=== PATIENT | female | born 1965 | race Caucasian/White ===

== ENCOUNTER 2018-02-26 18:27 | Emergency (ER) | payer OTHER ==
[~2018-02-26] VITALS: Ht 167.6 cm; Wt 108.9 kg
[2018-02-26 18:40] VITALS: BP 149/98
[2018-02-26] MEDS: IBUPROFEN 600 MG TAB PO ONE (18:47)
[2018-02-26 19:50] VITALS: BP 150/90
== END 2018-02-26 19:50 | disposition home or self-care (01) ==
LOC: MED 18:27
DX: S52.591A Other fractures of lower end of right radius, initial encounter for closed fracture (principal); I10 Essential (primary) hypertension; E11.9 Type 2 diabetes mellitus without complications; W19.XXXA Unspecified fall, initial encounter; Y93.89 Activity, other specified; Y92.89 Other specified places as the place of occurrence of the external cause; Y99.8 Other external cause status
CPT/HCPCS: 73110; 99283

== ENCOUNTER 2022-09-18 06:24 | Inpatient (IN) | payer OTHER ==
[~2022-09-18] VITALS: Ht 162.6 cm; Wt 85.7 kg
[2022-09-18 06:48] VITALS: BP 138/79
--- NOTE | 2022-09-18 06:59 | NUR ---
PT WOKE UP WITH LEFT FOOT PAIN 09/17 WHEN WALKING WITH SOME PRESSURE YESTERDAY TODAY NOTICE THE 3RD TOES TURNED THE COLOR TO BLUE AND SWELLING AN ENTIRE LEFT FOOT WITH PAIN. DENIES FEVER, N/V [facility] DM
--- NOTE | 2022-09-18 07:03 | NUR ---
BIB WHEELCHAIR TO BED 04
--- NOTE | 2022-09-18 07:19 | NUR ---
PT REPORT GIVEN TO LM. ALL CARE ENDORSED, QUESTIONS AND CONCERNS ADDRESSED.
--- NOTE | 2022-09-18 07:20 | NUR ---
REPORT RECIEVED FROM LOTTIE RUIZ FOR TRANSFER OF CARE.
[2022-09-18] MEDS ORDERED: NACL 0.9% 1,000 ML IV ONE ×2 (07:25→08:20)
[2022-09-18] MEDS ORDERED: PIPERACILLIN/TAZOBACTAM 3.375 GM in DEXTROSE 5% 50 ML IV ONE (07:25)
[2022-09-18] MEDS ORDERED: VANCOMYCIN 1,000 MG in DEXTROSE 5% 250 ML IV ONE (07:25)
--- NOTE | 2022-09-18 07:41 | NUR ---
X-Ray at bedside.
[2022-09-18] MEDS ORDERED: PIPERACILLIN/TAZOBACTAM 3.375 GM VIAL IV ONE (08:09)
[2022-09-18 08:11] LABS: BASOPHILS # (AUTO) 0.1 K/uL (0.00-0.22); BASOPHILS % (AUTO) 0.6 % (0.0-2.0); EOSINOPHILS # (AUTO) 0.1 K/uL (0-0.4); EOSINOPHILS % (AUTO) 0.5 % (0.0-4.0); HEMATOCRIT 39.5 % (36-48); HEMOGLOBIN 13.2 g/dL (12.0-16.0); LYMPHOCYTES # (AUTO) 1.2 K/uL (2.5-16.5); MEAN CORPUSCULAR HEMOGLOBIN 27 pg (27-31); MEAN CORPUSCULAR HGB CONC 33 g/dL (33-37); MEAN CORPUSCULAR VOLUME 80.4 fL (80-94); MONOCYTES # (AUTO) 0.8 K/uL (0.8-1.0); MONOCYTES % (AUTO) 4.8 % (1.7-9.3); NEUTROPHILS # (AUTO) 15.3 K/uL (1.8-7.7); NEUTROPHILS % (AUTO) 87.1 % (42.2-75.2); PLATELET COUNT (AUTO) 137 K/uL (140-450); RED BLOOD CELL COUNT(AUTO) 4.91 MIL/uL (4.20-5.40); RED CELL DISTRIBUTION WIDTH 13.1 % (11.6-13.7); WHITE BLOOD COUNT (AUTO) 17.6 K/uL (4.8-10.8)
[2022-09-18] MEDS ORDERED: CLINDAMYCIN 900MG/D5W PM 50 ML IV ONE (08:15)
--- NOTE | 2022-09-18 08:29 | NUR ---
pt resting in bed. no distress antibiotic medication zosyn started. pt stated no allergies to medications.
--- NOTE | 2022-09-18 08:33 | NUR ---
Per patient, takes no prescribed medication. Med rec complete.
[2022-09-18 08:50] LABS: ALBUMIN 3.3 g/dL (3.4-5.0); ANION GAP 11.8 (8-16); CARBON DIOXIDE 27.9 mmol/L (21-32); CREATININE 0.9 mg/dL (0.6-1.3); POTASSIUM 4.7 mmol/L (3.5-5.1); TOTAL BILIRUBIN 0.9 mg/dL (0.0-1.0)
[2022-09-18 08:51] LABS: PROTHROMBIN TIME 11.4 secs (10.8-13.4)
--- NOTE | 2022-09-18 09:00 | NUR ---
The patient's care was reviewed and supervised by [facility], RN.
--- NOTE | 2022-09-18 09:01 | NUR ---
CRITICAL LAB RESULT =[id number] MADE AWARE
--- NOTE | 2022-09-18 09:10 | NUR ---
Updated Vivian, case resolution specialist of [facility] of patients condition.
[2022-09-18] MEDS ORDERED: INSULIN REGULAR, HUMAN 100 UNIT/ML VIAL SUBQ ONE (10:30)
[2022-09-18] MEDS ORDERED: VANCOMYCIN 1,000 MG VIAL ONE (10:48)
[2022-09-18] MEDS ORDERED: POTASSIUM CHLORIDE 10 MEQ TABER PO PRN (11:15)
[2022-09-18] MEDS ORDERED: HYDROcodone/APAP 5/325 MG 1 TAB TAB PO PRN (11:15)
[2022-09-18] MEDS: NACL 0.9% 1,000 ML IV SCH ×2 (11:15→23:45)
[2022-09-18] MEDS ORDERED: KCL 20 MEQ IN 100 mL PREMIX 200 ML IV PRN (11:15)
[2022-09-18] MEDS ORDERED: MORPHINE SULFATE 4 MG/ML SYR IVP PRN (11:15)
[2022-09-18] MEDS ORDERED: MAG SULF 2000 MG/WATER PREMIX 50 ML IV PRN (11:15)
[2022-09-18] MEDS ORDERED: MAGNESIUM OXIDE 400 MG TAB PO PRN (11:15)
[2022-09-18] MEDS ORDERED: ONDANSETRON 4 MG/2 ML VIAL IVP PRN (11:15)
[2022-09-18] MEDS ORDERED: VANCOMYCIN PER PHARMACY MC PRN (11:15)
[2022-09-18] MEDS ORDERED: DEXTROSE 50% 50 ML SYR IVP PRN (11:20)
[2022-09-18] MEDS: BLOOD GLUCOSE MONITORING 1 DEV DEV FS SCH ×3 (11:30→21:40)
[2022-09-18] MEDS: PIPERACILLIN/TAZOBACTAM 3.375 GM in DEXTROSE 5% 50 ML IV SCH ×2 (12:00→18:20)
[2022-09-18] MEDS: INSULIN LISPRO SLIDING SCALE 100 UNITS/ML VIAL SUBQ PRN ×3 (12:39→21:42)
--- NOTE | 2022-09-18 12:48 | NUR ---
Patient will be admitted to care of Dr. Mclean. Admited to M/S. Will go to room 112-A. Belongings list completed. Report to LOTTIE Burdick.
[2022-09-18 13:00] VITALS: BP 133/75
[2022-09-18] MEDS: ACETAMINOPHEN 325 MG TAB PO PRN (16:58)
--- NOTE | 2022-09-18 19:30 | NUR ---
RECEIVED REPORT FROM NOREEN MCKEON FOR CONTINUITY OF CARE. PATIENT AWAKE ALERT RESTING COMFORTABLY IN BED. NO COMPLAINTS OF PAIN. SAFETY MEASURES IN PLACE. IVF INFUSING ORDERED. CALL LIGHT WITHIN REACH.
[2022-09-18 20:00] VITALS: BP 121/65
--- NOTE | 2022-09-18 20:22 | NUR ---
PATIENT WAS SEEN AND EXAMINED BY DR. VILLAR WITH NEW ORDERS NOTED.
--- NOTE | 2022-09-18 21:44 | NUR ---
ADMINISTERED SCHEDULED DUE MEDICATIONS.
[2022-09-18] MEDS: VANCOMYCIN 750 MG in NACL 0.9% 250 ML IV SCH (22:53)
[2022-09-19] MEDS: PIPERACILLIN/TAZOBACTAM 3.375 GM in DEXTROSE 5% 50 ML IV SCH ×4 (00:41→17:04)
[2022-09-19] MEDS: ACETAMINOPHEN 325 MG TAB PO PRN ×2 (01:07→17:11)
[2022-09-19 04:00] VITALS: BP 121/84
[2022-09-19 06:11] LABS: BASOPHILS % (AUTO) 0.2 % (0.0-2.0); EOSINOPHILS # (AUTO) 0.1 K/uL (0-0.4); HEMOGLOBIN 11.6 g/dL (12.0-16.0); MEAN CORPUSCULAR HEMOGLOBIN 27 pg (27-31); MEAN CORPUSCULAR HGB CONC 33 g/dL (33-37); MEAN CORPUSCULAR VOLUME 80.6 fL (80-94); MONOCYTES # (AUTO) 0.7 K/uL (0.8-1.0); MONOCYTES % (AUTO) 5.5 % (1.7-9.3); NEUTROPHILS # (AUTO) 9.9 K/uL (1.8-7.7); NEUTROPHILS % (AUTO) 77.3 % (42.2-75.2); PLATELET COUNT (AUTO) 121 K/uL (140-450); RED BLOOD CELL COUNT(AUTO) 4.34 MIL/uL (4.20-5.40); WHITE BLOOD COUNT (AUTO) 12.8 K/uL (4.8-10.8)
[2022-09-19 06:24] LABS: MAGNESIUM 1.7 mg/dL (1.8-2.4); PHOSPHORUS 2.7 mg/dL (2.5-4.9)
[2022-09-19 06:31] LABS: CARBON DIOXIDE 26.7 mmol/L (21-32); CREATININE 0.8 mg/dL (0.6-1.3); POTASSIUM 3.7 mmol/L (3.5-5.1)
[2022-09-19] MEDS: BLOOD GLUCOSE MONITORING 1 DEV DEV FS SCH ×4 (06:37→21:15)
[2022-09-19] MEDS: INSULIN LISPRO SLIDING SCALE 100 UNITS/ML VIAL SUBQ PRN ×4 (06:38→21:19)
--- NOTE | 2022-09-19 07:55 | NUR ---
RECEIVED REPORT FROM MECHANIC NURSE FOR CONTINUITY OF CARE. PT IS AWAKE , NO SIGN OF DISTRESS. WILL CONTINUE WITH POC.
--- NOTE | 2022-09-19 07:55 | NUR ---
GAVE BEDSIDE REPORT TO AM NURSE FOR CONTINUITY OF CARE. PATIENT STABLE.
[2022-09-19 08:00] VITALS: BP 124/58
--- NOTE | 2022-09-19 08:52 | NUR ---
PATIENT HAS BEEN SCREENED AND CATEGORIZED HIGH NUTRITION RISK. PATIENT WILL BE SEEN WITHIN 1-2 DAYS OF ADMISSION. 09/19/22-09/20/22 [facility] REFERRAL RECEIVED FOR WOUNDS/UNCONTROLLED DIABETES ON 09/19/22. [address]
[2022-09-19] MEDS: DOCUSATE SODIUM 100 MG GELCAP PO SCH (09:00)
[2022-09-19] MEDS: VANCOMYCIN 750 MG in NACL 0.9% 250 ML IV SCH (11:23)
[2022-09-19] MEDS: NACL 0.9% 1,000 ML IV SCH (12:15)
--- NOTE | 2022-09-19 14:05 | NUR ---
09/19/22 RD INITIAL ASSESSMENT COMPLETED PLEASE REFER TO NUTRITION ASSESSMENT UNDER CARE ACTIVITY FOR ESTIMATED NUTRITIONAL NEEDS. [facility] 2.RD RECOMMENDS [employer] [facility] FOR WOUNDS WHICH WILL PROVIDE 120 CALORIES AND 30 GRAMS OF PROTEIN. 3. RD TO FOLLOW-UP 3-5 DAYS, MODERATE RISK [address]IN [address]
[2022-09-19 16:00] VITALS: BP 145/76
--- NOTE | 2022-09-19 16:38 | NUR ---
DC [age] YRS OLD MALE PATIENT WAS AMDITTED FROM HOME WITH A DX OF CELLULITIS. PATIENT HAS A HX OF DM. XRAY OF LEFT TOE SHOWED NO ACUTE OSSEOUS ABNORMALITY , MILD SOFT TISSUE SWELLING OF THE THIRD TOE. ADMINISTERED IVF, IV ABX VANCOMYCIN AND ZOSYN . SEEN BY PODIATRY DR VILLAR RECOMMENDED MAY NEED TO DO A TOE AMPUTATION BECAUSE OF BLACK/GANGRENE. SURGERY SCHEDULED FOR TOMORROW 09/20/22.CONSULTED WITH ID. DC PLAN TO GO HOME WITH HOME HEALTH VS SNF. CM TO FOLLOW
[2022-09-19 20:00] VITALS: BP 150/78
--- NOTE | 2022-09-19 21:21 | NUR ---
DUE MEDICATION GIVEN ORDERED. PATIENT AWAKE , NO SOB NOTED. CALL LIGHT IN REACH. NO COMPLAINTS OF PAIN. IVF NS INFUSING ORDERED.
[2022-09-19] MEDS ORDERED: VANCOMYCIN 750 MG in NACL 0.9% 250 ML IV SCH (22:30)
[2022-09-20] MEDS: NACL 0.9% 1,000 ML IV SCH ×2 (01:05→13:25)
[2022-09-20 04:00] VITALS: BP 141/73
[2022-09-20] MEDS ORDERED: ceFAZolin 1,000 MG VIAL ONE (04:47)
[2022-09-20] MEDS: ACETAMINOPHEN 325 MG TAB PO PRN (05:50)
--- NOTE | 2022-09-20 05:51 | NUR ---
PATIENT COMPLAINED OF HEADACHE, MEDICATED WITH TYLENOL.
[2022-09-20] MEDS: BLOOD GLUCOSE MONITORING 1 DEV DEV FS SCH ×3 (06:36→16:30)
[2022-09-20] MEDS: INSULIN LISPRO SLIDING SCALE 100 UNITS/ML VIAL SUBQ PRN ×3 (06:37→17:41)
[2022-09-20 07:15] LABS: ANION GAP 11.5 (8-16); CARBON DIOXIDE 25.2 mmol/L (21-32); CREATININE 0.6 mg/dL (0.6-1.3); POTASSIUM 3.7 mmol/L (3.5-5.1)
--- NOTE | 2022-09-20 07:15 | NUR ---
RECEIVED REPORT FROM NIGHTSHIFT NURSE TEREZA FOR CONTINUITY OF CARE. PT IN STABLE CONDITION.
[2022-09-20 07:17] LABS: BASOPHILS % (AUTO) 0.4 % (0.0-2.0); EOSINOPHILS # (AUTO) 0.2 K/uL (0-0.4); EOSINOPHILS % (AUTO) 1.7 % (0.0-4.0); HEMATOCRIT 35.2 % (36-48); HEMOGLOBIN 11.8 g/dL (12.0-16.0); LYMPHOCYTES # (AUTO) 1.6 K/uL (2.5-16.5); LYMPHOCYTES % (AUTO) 16.6 % (20.5-51.1); MEAN CORPUSCULAR HEMOGLOBIN 27 pg (27-31); MEAN CORPUSCULAR HGB CONC 34 g/dL (33-37); MEAN CORPUSCULAR VOLUME 81.2 fL (80-94); MONOCYTES # (AUTO) 0.6 K/uL (0.8-1.0); MONOCYTES % (AUTO) 6.3 % (1.7-9.3); NEUTROPHILS # (AUTO) 7.4 K/uL (1.8-7.7); PLATELET COUNT (AUTO) 138 K/uL (140-450); RED BLOOD CELL COUNT(AUTO) 4.33 MIL/uL (4.20-5.40); RED CELL DISTRIBUTION WIDTH 12.8 % (11.6-13.7); WHITE BLOOD COUNT (AUTO) 9.8 K/uL (4.8-10.8)
[2022-09-20 07:27] LABS: MAGNESIUM 1.6 mg/dL (1.8-2.4)
[2022-09-20 08:00] VITALS: BP 140/70
[2022-09-20] MEDS: DOCUSATE SODIUM 100 MG GELCAP PO SCH (09:00)
[2022-09-20 16:00] VITALS: BP 154/74
[2022-09-20] MEDS ORDERED: CEPH-588 PO (18:33)
--- NOTE | 2022-09-20 19:55 | NUR ---
DISCHARGED PATIENT HOME IN STABLE CONDITION PICKED UP BY HER FRIEND WITH PRIVATE CAR.
--- NOTE | 2022-09-21 09:03 | NUR ---
RECIEVED HOME HEALTH ORDER FOR WOUNDCARE AND A PODIATRY OUTPATIENT FOLLOW UP. FAXED ALL PAPERWORK TO [facility]. Addendum: 09/21/22 at 1554 by ROSALEE JONES CM OUT PATIENT PODIATRY WAS [facility] PATIENT AND WILL BE CONTACTING PATIENT AND FAMILY DIRECTLY.
== END 2022-09-20 19:55 | disposition home health service (06) | DRG 563 ==
LOC: MED 06:24 → MMU 11:15 → MTU 12:23
PROVIDERS: ADMIT Hospitalist; ATTEND Internal Medicine Infectious Disease
DX: S92.912A Unspecified fracture of left toe(s), initial encounter for closed fracture (principal); E11.40 Type 2 diabetes mellitus with diabetic neuropathy, unspecified; E11.51 Type 2 diabetes mellitus with diabetic peripheral angiopathy without gangrene; B35.1 Tinea unguium; S90.222A Contusion of left lesser toe(s) with damage to nail, initial encounter; L60.8 Other nail disorders; L97.529 Non-pressure chronic ulcer of other part of left foot with unspecified severity; Z20.822 Contact with and (suspected) exposure to COVID-19; E11.42 Type 2 diabetes mellitus with diabetic polyneuropathy; W18.39XA Other fall on same level, initial encounter; Y93.89 Activity, other specified; Y92.89 Other specified places as the place of occurrence of the external cause; Y99.8 Other external cause status
CPT/HCPCS: 36415; 73660; 80048; 80053; 80202; 82948; 83605; 83735; 84100; 85025; 85610; 85651; 85730; 86140; 87040; 87081; 93005; 93925; 96361; 96365; 96367; 96368; 96372; 99291; J0690; J1644; J1815; J2543; J3370; J7030; J7060; Q0092